=== PATIENT | female | born 1960 ===

== ENCOUNTER 2024-07-10 08:35 | Day surgery (SDC) | payer OTHER ==
[2024-07-04 09:33] VITALS: BP 152/87
[~2024-07-10] VITALS: Ht 157.5 cm; Wt 104.3 kg
[~2024-07-10 08:35] MED LIST: ZESTRIL5 MG
[2024-07-10] MEDS ORDERED: BUPIVACAINE HCL 30 ML VIAL IJ ONE (14:45)
[2024-07-10] MEDS ORDERED: LIDOCAINE HCL 1%/EPINEPHRINE 20ML VIAL IJ ONE (14:45)
[2024-07-10] MEDS ORDERED: CEFAZOLIN SODIUM 1,000 MG VIAL IV ONE (14:45)
[2024-07-10] MEDS ORDERED: SUGAMMADEX SODIUM 200 MG/2 ML VIAL IV ONE (15:05)
[2024-07-10] MEDS ORDERED: MORPHINE SULFATE 4 MG/ML VIAL IV ONE ×2 (19:25→19:55)
[2024-07-10] MEDS ORDERED: ONDANSETRON HCL 2 MG/ML VIAL ONE (22:09)
[2024-07-10] MEDS ORDERED: ONDANSETRON HCL 2 MG/ML VIAL IV ONE (22:30)
== END 2024-07-11 00:05 | disposition home or self-care (01) ==
LOC: CIR.AMB 08:35
PROVIDERS: ATTEND Student in an Organized Health Care Education/Training Program
DX: K40.91 Unilateral inguinal hernia, without obstruction or gangrene, recurrent (principal); K43.2 Incisional hernia without obstruction or gangrene; Z88.1 Allergy status to other antibiotic agents; I10 Essential (primary) hypertension; E66.9 Obesity, unspecified